=== PATIENT | male | born 1990 | race Caucasian/White ===

== ENCOUNTER 2017-12-02 14:23 | Emergency (ER) | payer SELFPAY | END 2017-12-02 14:45 | disposition home or self-care (01) | LOC: ER 14:23 | DX: K04.7 Periapical abscess without sinus (principal); K02.9 Dental caries, unspecified | CPT/HCPCS: 99283 ==

== ENCOUNTER 2021-04-17 21:45 | Emergency (ER) | payer SELFPAY ==
[2018-06-11 19:50] VITALS: BP 116/70
[~2021-04-17] VITALS: Ht 170.2 cm; Wt 65.9 kg
[~2021-04-17 21:45] MED LIST: AMOX500C PO
[2021-04-17] MEDS ORDERED: AMOX500C PO (22:23)
--- NOTE | 2021-04-17 22:23 | PHYS DOC ---
Past Medical History Past Medical History: No Pertinent History (PARK BRYSON PERINATOLOGY PHYSICIAN) Past Surgical History: No Surgical History (PARK BRYSON APRN) Smoking Status: Current Every Day Smoker Alcohol Use: Occasionally Drug Use: None (PARK BRYSON APRN) General Adult EDM: Chief Complaint: EARACHE/EAR PAIN HPI: HPI: Patient is a 30 year old male who presents with nasal congestion and sneezing for the last week. The for the last 3 days has had right ear throbbing. Patient denies fever, dizziness, headache, hearing loss, drainage from the ear. Patient rates his aching ear pain and 6 out of 10. (PARK BRYSON PERINATOLOGY PHYSICIAN) Review of Systems: Review of Systems: Constitutional: Denies fever or chills. [] Eyes: Denies change in visual acuity. [] HENT: + nasal congestion or denies sore throat. + Right ear pain [] Respiratory: Denies cough or shortness of breath. [] Cardiovascular: Denies chest pain or edema. [] GI: Denies abdominal pain, nausea, vomiting, bloody stools or diarrhea. [] : Denies dysuria. [] Musculoskeletal: Denies back pain or joint pain. [] Integument: Denies rash. [] Neurologic: Denies headache, focal weakness or sensory changes. [] Endocrine: Denies polyuria or polydipsia. [] Lymphatic: Denies swollen glands. [] Psychiatric: Denies depression or anxiety. [] (PARK BRYSON PERINATOLOGY PHYSICIAN) Heart Score: C/O Chest Pain: No Risk Factors: Risk Factors: DM, Current or recent (<one month) smoker, HTN, HLP, family history of CAD, obesity. Risk Scores: Score 0 - 3: 2.5% MACE over next 6 weeks - Discharge Home Score 4 - 6: 20.3% MACE over next 6 weeks - Admit for Clinical Observation Score 7 - 10: 72.7% MACE over next 6 weeks - Early Invasive Strategies (PARK BRYSON PERINATOLOGY PHYSICIAN) Allergies: Allergies: Allergies Coded Allergies Type Severity Reaction Last Updated Verified No Known Drug Allergies 08/14/15 No (PRAK BRYSON PERINATOLOGY PHYSICIAN) Physical Exam: PE: Constitutional: Well developed, well nourished, no acute distress, non-toxic appearance. [] HENT: Normocephalic, atraumatic, bilateral external ears normal, oropharynx moist, no oral exudates, nose normal. + Right ear redness with intact tympanic. [] Eyes: PERRLA, EOMI, conjunctiva normal, no discharge. [] Neck: Normal range of motion, no tenderness, supple, no stridor. [] Cardiovascular:Heart rate regular rhythm, no murmur [] Lungs & Thorax: Bilateral breath sounds clear to auscultation [] Abdomen: Bowel sounds normal, soft, no tenderness, no masses, no pulsatile masses. [] Skin: Warm, dry, no erythema, no rash. [] Back: No tenderness, no CVA tenderness. [] Extremities: No tenderness, no cyanosis, no clubbing, ROM intact, no edema. [] Neurologic: Alert and oriented X 3, normal motor function, normal sensory function, no focal deficits noted. [] Psychologic: Affect normal, judgement normal, mood normal. [] (PARK BRYSON APRN) EKG: EKG: [] (PARK BRYSON APRN) Radiology/Procedures: Radiology/Procedures: [] (PARK BRYSON APRN) Course & Med Decision Making: Course & Med Decision Making Pertinent Labs and Imaging studies reviewed. (See chart for details) See HPI. Alert and oriented x4. Ambulatory with a steady gait. Speaks in full clear sentences. Nasal congestion. Right ear reddened but tympanic intact. No drainage. There is pink without exudates. Vital signs within normal limits. No tenderness around the ear. [] (PARK BRYSON APRN) Course & Med Decision Making Patients Care and treatment plan provided by ER Nurse Practitioner. I was available for consult. Patient's chart reviewed. (FREDY TAVAREZ DO) [place] Disclaimer: Dragbenito Disclaimer: This electronic medical record was generated, in whole or in part, using a voice recognition dictation system. (PARK BRYSON APRN) Departure Departure Impression: Primary Impression: Otitis media Qualified Codes: H66.90 - Otitis media, unspecified, unspecified ear Disposition: HOME / SELF CARE / HOMELESS Condition: STABLE Referrals: NO PCP (PCP) Patient Instructions: Otitis Media, Adult Additional Instructions: Follow-up with primary care provider if needed. Take medication as prescribed and with food. Take ibuprofen to help with your pain. Scripts Amoxicillin (AMOXICILLIN) 500 Mg Capsule 1 CAP PO BID, #[id number] CAP Prov: PARK BRYSON APRN 04/17/21 PARK BRYSON APRN Apr 17, 2021 22:23 FREDY TAVAREZ DO Apr 18, 2021 04:06
== END 2021-04-17 22:50 | disposition home or self-care (01) ==
LOC: ER 21:45
DX: H66.91 Otitis media, unspecified, right ear (principal); R09.81 Nasal congestion; R06.7 Sneezing; F17.200 Nicotine dependence, unspecified, uncomplicated
CPT/HCPCS: 99283